=== PATIENT | male | born 1935 | race Caucasian/White ===

== ENCOUNTER 2019-02-01 15:42 | Emergency (ER) | payer MEDICARE, BC ==
[~2019-02-01] VITALS: Ht 170.2 cm; Wt 77.1 kg
[~2019-02-01 15:42] MED LIST: INSU100V28 SQ; NORCO PO; WARF-58 PO
--- NOTE | 2019-02-01 15:56 | NUR ---
Unable to reconcile pt's home medications. No information on current meds available, pt unable to provide info.
--- NOTE | 2019-02-01 16:03 | NUR ---
Patient is refusing chest x-ray, notified.
--- NOTE | 2019-02-01 16:03 | NUR ---
Patient is Aox4 & claims that [birth year] birthday is [birth year]. ER registration staff Jadon notified.
[2019-02-01 16:04] LABS: BASOPHILS # (AUTO) 0.1 K/uL (0.0-8.0); BASOPHILS % (AUTO) 0.8 % (0.0-2.0); EOSINOPHILS # (AUTO) 0.1 K/uL (0.0-0.7); HEMATOCRIT 34.6 % (36.7-47.1); HEMOGLOBIN 11.6 g/dL (12.5-16.3); LYMPHOCYTES # (AUTO) 1.1 K/uL (20.0-40.0); LYMPHOCYTES % (AUTO) 17.9 % (20.5-51.5); MEAN CORPUSCULAR HEMOGLOBIN 32.5 uug (23.8-33.4); MEAN CORPUSCULAR HGB CONC 34 g/dL (32.5-36.3); MEAN CORPUSCULAR VOLUME 96.4 fL (73.0-96.2); MONOCYTES # (AUTO) 0.5 K/uL (2.0-10.0); MONOCYTES % (AUTO) 8.8 % (0.0-11.0); NEUTROPHILS # (AUTO) 4.3 K/uL (1.8-8.9); NEUTROPHILS % (AUTO) 70.5 % (38.5-71.5); PLATELET COUNT (AUTO) 195 K/uL (152-348); RED BLOOD CELL COUNT(AUTO) 3.58 MIL/uL (4.06-5.63); WHITE BLOOD COUNT (AUTO) 6.1 K/uL (3.6-10.2)
--- NOTE | 2019-02-01 16:06 | NUR ---
Patient consents to x-ray now.
--- NOTE | 2019-02-01 16:08 | NUR ---
Patient voided by urinal.
--- NOTE | 2019-02-01 16:12 | NUR ---
Patient is refusing CT scan, notified
[2019-02-01 16:14] LABS: CARBON DIOXIDE 26 mmol/L (21-32); CHLORIDE 101 mmol/L (98-107); CREATININE 1.6 mg/dL (0.6-1.3); POTASSIUM 5.5 mmol/L (3.5-5.1); UREA NITROGEN, BLOOD 62 mg/dL (7-18)
[2019-02-01 16:16] LABS: GLUCOSE 351 mg/dL (74-106)
--- NOTE | 2019-02-01 16:16 | NUR ---
Patient is now consenting to CT scan.
[2019-02-01 16:21] LABS: ACETAMINOPHEN < 2.0 ug/mL (10-30); ALANINE AMINOTRANSFERASE 22 U/L (16-63); ALKALINE PHOSPHATASE 74 U/L (50-136); ASPARTATE AMINOTRANSFERASE 13 U/L (15-37); BILIRUBIN,DIRECT 0.1 mg/dL (0.0-0.2); BILIRUBIN,TOTAL 0.3 mg/dL (0.2-1.0); TOTAL PROTEIN, SERUM 7.6 g/dL (6.4-8.2)
--- NOTE | 2019-02-01 16:22 | NUR ---
Patiwent is back from CT scan, pt refused CT scan, MD prabhakarfied
[2019-02-01 16:23] LABS: ETHANOL < 3 MG/DL (0-0)
[2019-02-01] MEDS ORDERED: CALCIUM CHLORIDE 1 GM/10 ML DISP.SYRIN IVP ONE ×2 (16:26→16:30)
[2019-02-01] MEDS ORDERED: INSULIN REGULAR, HUMAN 300 UNIT/3 ML VIAL ONE (16:27)
[2019-02-01] MEDS ORDERED: SODIUM BICARBONATE 8.4% 50 MEQ/50 ML DISP.SYRIN IV ONE ×2 (16:27→16:30)
[2019-02-01 16:30] LABS: *BILIRUBIN,URIN NEGATIVE (NEGATIVE); *BLOOD, URINE 1+ (NEGATIVE); *CLARITY,URINE CLEAR (CLEAR); *COLOR,URINE YELLOW (YELLOW); *KETONES,URINE NEGATIVE (NEGATIVE); *UROBILINOGEN,URINE 0.2 E.U./dl (NORMAL); LEUKOCYTE ESTERASE ,URINE NEGATIVE (NEGATIVE); NITRITE, URINE NEGATIVE (NEGATIVE); UGLUCOSE 2+ (NEGATIVE)
[2019-02-01] MEDS: INSULIN REGULAR, HUMAN 300 UNIT/3 ML VIAL SQ ONE ×2 (16:30→16:35)
[2019-02-01] MEDS ORDERED: IV NORMAL SALINE 500 ML BAG IV ONE (16:30)
[2019-02-01 16:31] LABS: THYROID STIMULATING HORMONE 0.653 mIU/mL (0.358-3.740)
[2019-02-01 16:37] LABS: MUCUS,URINE FEW /LPF (0-FEW); WBC,URINE NONE SEEN /HPF (0-3)
--- NOTE | 2019-02-01 16:39 | NUR ---
Patient ambulated using the hospital-walker from ER room 3 to hallway. Patient says he uses walker at home. "Road test" done.
[2019-02-01 16:40] LABS: *AMPHETAMINE, URINE NEGATIVE (NEGATIVE); *BARBITURATE, URINE NEGATIVE (NEGATIVE); *CANNABINOID, URINE NEGATIVE (NEGATIVE); *COCCAINE, URINE NEGATIVE (NEGATIVE); *OPIATE, URINE POSITIVE (NEGATIVE); *PHENCYCLIDINE SCREEN,URINE NEGATIVE (NEGATIVE)
--- NOTE | 2019-02-01 16:42 | NUR ---
Patient passed "road test" using a walker.
--- NOTE | 2019-02-01 16:45 | NUR ---
Patient does not wish to proceed with medical care recommended by Dr. Campbell. Patient given information related to possible complications, up to and including , which could occur as a result of leaving the hospital at this time. Patient verbalizes understanding of risks involved due to leaving against medical advice. Patient has signed AMA form.
== END 2019-02-01 16:58 | disposition left against medical advice (07) ==
LOC: MERGE 15:45 → ER 15:45
DX: E87.5 Hyperkalemia (principal); E11.65 Type 2 diabetes mellitus with hyperglycemia; N28.9 Disorder of kidney and ureter, unspecified; Z88.6 Allergy status to analgesic agent; Z79.4 Long term (current) use of insulin; Z79.01 Long term (current) use of anticoagulants; Z79.891 Long term (current) use of opiate analgesic
CPT/HCPCS: 36415; 71045; 80048; 80076; 80307; 81000; 81001; 82140; 84443; 84484; 85025; 93005; 99284; G0480 ×2; G0481; J1815; J3490 ×2; 70030-TC; A4663; J7030; J7040

== ENCOUNTER 2019-12-25 15:40 | Inpatient (IN) | payer MEDICARE, BC ==
[~2019-12-25] VITALS: Ht 152.4 cm; Wt 66.2 kg
[2019-12-25 16:09] LABS: BASOPHILS # (AUTO) 0.1 K/uL (0.0-8.0); EOSINOPHILS # (AUTO) 0.1 K/uL (0.0-0.7); MEAN CORPUSCULAR VOLUME 94.1 fL (73.0-96.2)
[2019-12-25 16:24] LABS: EOSINOPHILS % (AUTO) 1.7 % (0.0-7.0); HEMATOCRIT 34.9 % (36.7-47.1); HEMOGLOBIN 11.7 g/dL (12.5-16.3); LYMPHOCYTES # (AUTO) 2.2 K/uL (20.0-40.0); LYMPHOCYTES % (AUTO) 27.5 % (20.5-51.5); MEAN CORPUSCULAR HEMOGLOBIN 31.7 uug (23.8-33.4); MEAN CORPUSCULAR HGB CONC 34 g/dL (32.5-36.3); MONOCYTES # (AUTO) 0.7 K/uL (2.0-10.0); MONOCYTES % (AUTO) 8.9 % (0.0-11.0); NEUTROPHILS # (AUTO) 4.8 K/uL (1.8-8.9); NEUTROPHILS % (AUTO) 60.9 % (38.5-71.5); RED BLOOD CELL COUNT(AUTO) 3.71 MIL/uL (4.06-5.63); WHITE BLOOD COUNT (AUTO) 7.9 K/uL (3.6-10.2)
[2019-12-25 16:34] LABS: CARBON DIOXIDE 20 mmol/L (21-32); CHLORIDE 101 mmol/L (98-107); CREATININE 2.7 mg/dL (0.6-1.3); GLUCOSE 187 mg/dL (74-106); UREA NITROGEN, BLOOD 71 mg/dL (7-18)
[2019-12-25 16:35] LABS: ETHANOL < 3 MG/DL (0-0)
[2019-12-25 16:40] LABS: ACETAMINOPHEN < 2.0 ug/mL (10-30); ALANINE AMINOTRANSFERASE 27 U/L (16-63); ALKALINE PHOSPHATASE 68 U/L (50-136); ASPARTATE AMINOTRANSFERASE 16 U/L (15-37); BILIRUBIN,DIRECT 0.1 mg/dL (0.0-0.2); BILIRUBIN,TOTAL 0.3 mg/dL (0.2-1.0); TOTAL PROTEIN, SERUM 8.2 g/dL (6.4-8.2)
[2019-12-25 16:50] LABS: PLATELET COUNT (AUTO) 193 K/uL (152-348)
[2019-12-25] MEDS ORDERED: IV NORMAL SALINE 500 ML BAG IV ONE ×2 (17:00→18:15)
[2019-12-25] MEDS ORDERED: HYDROCODONE/APAP 5-325MG TABLET PO ONE (17:45)
[2019-12-25] MEDS ORDERED: HYDROCODONE/APAP 5-325MG TABLET ONE (17:50)
[2019-12-25] MEDS ORDERED: OLANZAPINE 10 MG VIAL IM ONE ×2 (18:45→18:49)
[2019-12-25] MEDS ORDERED: HYDR-4354 PO (19:46)
[2019-12-25 20:29] LABS: *BILIRUBIN,URIN NEGATIVE (NEGATIVE); *CLARITY,URINE CLEAR (CLEAR); *COLOR,URINE YELLOW (YELLOW); *KETONES,URINE NEGATIVE (NEGATIVE); *UROBILINOGEN,URINE 0.2 E.U./dl (NORMAL); LEUKOCYTE ESTERASE ,URINE NEGATIVE (NEGATIVE); NITRITE, URINE NEGATIVE (NEGATIVE); UGLUCOSE NEGATIVE (NEGATIVE)
[2019-12-25 20:33] LABS: *BLOOD, URINE TRACE LYSED (NEGATIVE)
[2019-12-25 20:53] LABS: *AMPHETAMINE, URINE POSITIVE (NEGATIVE); *CANNABINOID, URINE NEGATIVE (NEGATIVE); *COCCAINE, URINE NEGATIVE (NEGATIVE); *OPIATE, URINE POSITIVE (NEGATIVE); *PHENCYCLIDINE SCREEN,URINE NEGATIVE (NEGATIVE)
[2019-12-25 21:19] LABS: BACTERIA,URINE FEW /HPF (NONE SEEN); RBC,URINE 0-3 /HPF (0-3); SQUAMOUS EPITHELIAL CELL,UR FEW /HPF (NONE SEEN); WBC,URINE 0-3 /HPF (0-3)
[2019-12-25 21:20] LABS: COARSE GRANULAR CASTS,URINE FEW /LPF
[2019-12-25] MEDS ORDERED: BLOOD SUGAR DIAGNOSTIC 1 EACH STRIP VI ONE (22:15)
[2019-12-25] MEDS ORDERED: MAG HYDROX/AL HYDROX/SIMETH 30 ML LIQUID UDC PO PRN (22:15)
[2019-12-25] MEDS ORDERED: MAGNESIUM HYDROXIDE 30 ML LIQUID UDC PO PRN (22:15)
[2019-12-26 07:30] VITALS: BP 150/78
[2019-12-26] MEDS ORDERED: DEXTROSE 50% 50 ML DISP.SYRIN IV PRN (07:30)
[2019-12-26] MEDS ORDERED: hydrALAZINE HCL 25 MG TABLET PO PRN (07:30)
[2019-12-26] MEDS: BLOOD SUGAR DIAGNOSTIC 1 EACH STRIP VI SCH ×4 (08:23→20:21)
[2019-12-26] MEDS: AMLODIPINE 5 MG TABLET PO SCH ×2 (08:24→20:32)
[2019-12-26 08:39] LABS: ALANINE AMINOTRANSFERASE 21 U/L (16-63); ALKALINE PHOSPHATASE 64 U/L (50-136); ASPARTATE AMINOTRANSFERASE 21 U/L (15-37); BILIRUBIN,TOTAL 0.3 mg/dL (0.2-1.0); CARBON DIOXIDE 21 mmol/L (21-32); CHLORIDE 109 mmol/L (98-107); GLUCOSE 80 mg/dL (74-106); POTASSIUM 4.4 mmol/L (3.5-5.1); TOTAL PROTEIN, SERUM 7.1 g/dL (6.4-8.2); UREA NITROGEN, BLOOD 58 mg/dL (7-18)
[2019-12-26 08:40] LABS: THYROID STIMULATING HORMONE 0.949 mIU/mL (0.358-3.740)
[2019-12-26] MEDS: HYDROCODONE/APAP 10-325 MG TABLET PO PRN (11:19)
[2019-12-26] MEDS: INSULIN REGULAR, HUMAN 300 UNIT/3 ML VIAL SQ PRN ×2 (11:27→20:23)
[2019-12-26 16:00] VITALS: BP 122/45
[2019-12-26] MEDS ORDERED: INFLUENZA VACCINE 2020-2021 0.5 ML DISP.SYRIN IM ONE (17:30)
[2019-12-26] MEDS ORDERED: PNEUMOCOCCAL 23-VAL P-SAC VAC 0.5 ML VIAL IM ONE (17:30)
[2019-12-26] MEDS: ACETAMINOPHEN 325 MG TABLET PO PRN (18:21)
[2019-12-26 20:00] VITALS: BP 159/54
[2019-12-26] MEDS: INSULIN GLARGINE,HUM 300 UNITS/3 ML CARTRIDGE SQ SCH (20:24)
[2019-12-26] MEDS: RIVASTIGMINE TARTRATE 1.5 MG CAPSULE PO SCH (20:32)
[2019-12-26] MEDS ORDERED: risperiDONE 0.5 MG TABLET PO SCH (21:00)
[2019-12-27] MEDS: BLOOD SUGAR DIAGNOSTIC 1 EACH STRIP VI SCH ×4 (07:09→20:05)
[2019-12-27 07:30] VITALS: BP 150/52
[2019-12-27] MEDS: RIVASTIGMINE TARTRATE 1.5 MG CAPSULE PO SCH ×2 (08:07→20:12)
[2019-12-27] MEDS: AMLODIPINE 5 MG TABLET PO SCH ×2 (08:10→20:09)
[2019-12-27] MEDS: LORAZEPAM 0.5 MG TABLET PO PRN ×2 (11:04→17:27)
[2019-12-27] MEDS: risperiDONE 0.5 MG TABLET PO SCH ×2 (13:58→21:13)
[2019-12-27 16:00] VITALS: BP 140/83
[2019-12-27] MEDS: INSULIN REGULAR, HUMAN 300 UNIT/3 ML VIAL SQ PRN ×2 (16:24→20:15)
[2019-12-27 20:00] VITALS: BP 119/46
[2019-12-27 20:10] VITALS: BP 120/60
[2019-12-27] MEDS: INSULIN GLARGINE,HUM 300 UNITS/3 ML CARTRIDGE SQ SCH (20:14)
[2019-12-28] MEDS: LORAZEPAM 0.5 MG TABLET PO PRN (03:32)
[2019-12-28] MEDS: BLOOD SUGAR DIAGNOSTIC 1 EACH STRIP VI SCH ×4 (06:47→20:19)
[2019-12-28 07:30] VITALS: BP 140/45
[2019-12-28] MEDS: RIVASTIGMINE TARTRATE 1.5 MG CAPSULE PO SCH ×2 (09:46→20:03)
[2019-12-28] MEDS: risperiDONE 0.5 MG TABLET PO SCH ×2 (09:46→20:03)
[2019-12-28] MEDS: AMLODIPINE 5 MG TABLET PO SCH ×2 (09:49→20:06)
[2019-12-28 15:06] VITALS: BP 125/50
[2019-12-28 19:57] VITALS: BP 108/54
[2019-12-28] MEDS: INSULIN REGULAR, HUMAN 300 UNIT/3 ML VIAL SQ PRN (20:22)
[2019-12-28] MEDS: INSULIN GLARGINE,HUM 300 UNITS/3 ML CARTRIDGE SQ SCH (20:25)
[2019-12-29] MEDS: BLOOD SUGAR DIAGNOSTIC 1 EACH STRIP VI SCH ×4 (06:57→20:34)
[2019-12-29 07:30] VITALS: BP 106/67
[2019-12-29] MEDS: risperiDONE 0.5 MG TABLET PO SCH ×2 (08:26→20:09)
[2019-12-29] MEDS: RIVASTIGMINE TARTRATE 1.5 MG CAPSULE PO SCH ×2 (08:26→20:09)
[2019-12-29] MEDS: AMLODIPINE 5 MG TABLET PO SCH ×2 (08:27→20:10)
[2019-12-29] MEDS: ACETAMINOPHEN 325 MG TABLET PO PRN (08:31)
[2019-12-29] MEDS: INSULIN REGULAR, HUMAN 300 UNIT/3 ML VIAL SQ PRN ×3 (12:23→20:46)
[2019-12-29 15:40] VITALS: BP 141/52
[2019-12-29] MEDS: HYDROCODONE/APAP 10-325 MG TABLET PO PRN (18:22)
[2019-12-29 20:00] VITALS: BP 135/61
[2019-12-29] MEDS: LORAZEPAM 0.5 MG TABLET PO PRN (20:11)
[2019-12-29] MEDS: INSULIN GLARGINE,HUM 300 UNITS/3 ML CARTRIDGE SQ SCH (20:45)
[2019-12-29] MEDS: TEMAZEPAM 7.5 MG CAPSULE PO PRN (23:23)
[2019-12-30] MEDS: BLOOD SUGAR DIAGNOSTIC 1 EACH STRIP VI SCH ×4 (06:34→20:19)
[2019-12-30 06:51] LABS: CARBON DIOXIDE 23 mmol/L (21-32); CHLORIDE 107 mmol/L (98-107); CREATININE 1.9 mg/dL (0.6-1.3); GLUCOSE 182 mg/dL (74-106); POTASSIUM 4.9 mmol/L (3.5-5.1); UREA NITROGEN, BLOOD 61 mg/dL (7-18)
[2019-12-30 07:22] LABS: BASOPHILS % (AUTO) 0.4 % (0.0-2.0); EOSINOPHILS # (AUTO) 0.2 K/uL (0.0-0.7); EOSINOPHILS % (AUTO) 1.7 % (0.0-7.0); HEMATOCRIT 35.9 % (36.7-47.1); HEMOGLOBIN 12.1 g/dL (12.5-16.3); LYMPHOCYTES # (AUTO) 1.5 K/uL (20.0-40.0); MEAN CORPUSCULAR HEMOGLOBIN 31.6 uug (23.8-33.4); MEAN CORPUSCULAR HGB CONC 34 g/dL (32.5-36.3); MONOCYTES # (AUTO) 0.7 K/uL (2.0-10.0); MONOCYTES % (AUTO) 7.8 % (0.0-11.0); NEUTROPHILS # (AUTO) 7.1 K/uL (1.8-8.9); NEUTROPHILS % (AUTO) 74.1 % (38.5-71.5); PLATELET COUNT (AUTO) 198 K/uL (152-348); RED BLOOD CELL COUNT(AUTO) 3.82 MIL/uL (4.06-5.63); WHITE BLOOD COUNT (AUTO) 9.6 K/uL (3.6-10.2)
[2019-12-30 07:30] VITALS: BP 121/67
[2019-12-30] MEDS: INSULIN REGULAR, HUMAN 300 UNIT/3 ML VIAL SQ PRN ×4 (08:12→20:21)
[2019-12-30] MEDS: RIVASTIGMINE TARTRATE 1.5 MG CAPSULE PO SCH ×2 (08:16→20:23)
[2019-12-30] MEDS: AMLODIPINE 5 MG TABLET PO SCH ×2 (08:16→20:24)
[2019-12-30] MEDS: risperiDONE 0.5 MG TABLET PO SCH ×2 (08:17→20:23)
[2019-12-30 16:00] VITALS: BP 122/50
[2019-12-30 20:00] VITALS: BP 164/54
[2019-12-30] MEDS: INSULIN GLARGINE,HUM 300 UNITS/3 ML CARTRIDGE SQ SCH (20:41)
[2019-12-30] MEDS: LORAZEPAM 0.5 MG TABLET PO PRN (21:38)
[2019-12-31] MEDS: TEMAZEPAM 7.5 MG CAPSULE PO PRN (00:05)
[2019-12-31 07:30] VITALS: BP 139/58
[2019-12-31] MEDS: BLOOD SUGAR DIAGNOSTIC 1 EACH STRIP VI SCH ×4 (08:14→20:06)
[2019-12-31] MEDS: risperiDONE 0.5 MG TABLET PO SCH (08:28)
[2019-12-31] MEDS: RIVASTIGMINE TARTRATE 1.5 MG CAPSULE PO SCH ×2 (08:29→20:04)
[2019-12-31] MEDS: AMLODIPINE 5 MG TABLET PO SCH ×2 (08:29→20:03)
[2019-12-31] MEDS: LORAZEPAM 0.5 MG TABLET PO PRN ×2 (10:35→19:22)
[2019-12-31] MEDS: INSULIN REGULAR, HUMAN 300 UNIT/3 ML VIAL SQ PRN ×3 (11:55→20:02)
[2019-12-31 15:07] VITALS: BP 107/62
[2019-12-31] MEDS: INSULIN GLARGINE,HUM 300 UNITS/3 ML CARTRIDGE SQ SCH (20:01)
[2019-12-31] MEDS: risperiDONE 1 MG TABLET PO SCH (20:04)
[2019-12-31 21:06] VITALS: BP 147/60
[2020-01-01] MEDS: BLOOD SUGAR DIAGNOSTIC 1 EACH STRIP VI SCH ×4 (06:30→20:04)
[2020-01-01 07:30] VITALS: BP 127/64
[2020-01-01] MEDS: risperiDONE 1 MG TABLET PO SCH ×2 (08:38→20:17)
[2020-01-01] MEDS: RIVASTIGMINE TARTRATE 1.5 MG CAPSULE PO SCH ×3 (08:38→22:12)
[2020-01-01] MEDS: AMLODIPINE 5 MG TABLET PO SCH ×2 (08:39→20:17)
[2020-01-01] MEDS: LORAZEPAM 0.5 MG TABLET PO PRN ×2 (08:48→18:11)
[2020-01-01 16:00] VITALS: BP 116/56
[2020-01-01] MEDS: INSULIN REGULAR, HUMAN 300 UNIT/3 ML VIAL SQ PRN ×2 (16:26→20:10)
[2020-01-01 20:09] VITALS: BP 113/54
[2020-01-01] MEDS: INSULIN GLARGINE,HUM 300 UNITS/3 ML CARTRIDGE SQ SCH (20:09)
[2020-01-01] MEDS: TEMAZEPAM 7.5 MG CAPSULE PO PRN (22:12)
[2020-01-02] MEDS: BLOOD SUGAR DIAGNOSTIC 1 EACH STRIP VI SCH ×4 (06:32→20:24)
[2020-01-02 07:30] VITALS: BP 149/104
[2020-01-02] MEDS: INSULIN REGULAR, HUMAN 300 UNIT/3 ML VIAL SQ PRN ×4 (07:46→20:33)
[2020-01-02] MEDS: RIVASTIGMINE TARTRATE 1.5 MG CAPSULE PO SCH ×2 (08:11→20:02)
[2020-01-02] MEDS: risperiDONE 1 MG TABLET PO SCH ×2 (08:12→20:03)
[2020-01-02] MEDS: AMLODIPINE 5 MG TABLET PO SCH ×2 (08:13→20:19)
[2020-01-02] MEDS: LORAZEPAM 0.5 MG TABLET PO PRN (14:31)
[2020-01-02 16:00] VITALS: BP 110/60
[2020-01-02] MEDS ORDERED: Z GUARD REMEDY PASTE 57 GM TUBE TOP PRN (19:45)
[2020-01-02 20:21] VITALS: BP 136/62
[2020-01-02] MEDS: INSULIN GLARGINE,HUM 300 UNITS/3 ML CARTRIDGE SQ SCH (20:29)
[2020-01-02 22:00] VITALS: BP 132/82
[2020-01-03 04:00] VITALS: BP 138/69
[2020-01-03] MEDS: BLOOD SUGAR DIAGNOSTIC 1 EACH STRIP VI SCH ×4 (06:31→20:13)
[2020-01-03 06:45] LABS: BASOPHILS # (AUTO) 0.1 K/uL (0.0-8.0); BASOPHILS % (AUTO) 0.7 % (0.0-2.0); EOSINOPHILS # (AUTO) 0.2 K/uL (0.0-0.7); EOSINOPHILS % (AUTO) 2.5 % (0.0-7.0); HEMATOCRIT 30.7 % (36.7-47.1); HEMOGLOBIN 10.6 g/dL (12.5-16.3); LYMPHOCYTES # (AUTO) 1.5 K/uL (20.0-40.0); LYMPHOCYTES % (AUTO) 19.7 % (20.5-51.5); MEAN CORPUSCULAR HEMOGLOBIN 32.3 uug (23.8-33.4); MEAN CORPUSCULAR HGB CONC 35 g/dL (32.5-36.3); MONOCYTES # (AUTO) 0.8 K/uL (2.0-10.0); MONOCYTES % (AUTO) 9.9 % (0.0-11.0); NEUTROPHILS # (AUTO) 5.1 K/uL (1.8-8.9); NEUTROPHILS % (AUTO) 67.2 % (38.5-71.5); PLATELET COUNT (AUTO) 153 K/uL (152-348); WHITE BLOOD COUNT (AUTO) 7.6 K/uL (3.6-10.2)
[2020-01-03 06:48] LABS: CARBON DIOXIDE 25 mmol/L (21-32); CHLORIDE 108 mmol/L (98-107); CREATININE 1.6 mg/dL (0.6-1.3); GLUCOSE 205 mg/dL (74-106); POTASSIUM 4.5 mmol/L (3.5-5.1); UREA NITROGEN, BLOOD 48 mg/dL (7-18)
[2020-01-03 08:53] VITALS: BP 141/75
[2020-01-03] MEDS: risperiDONE 1 MG TABLET PO SCH ×2 (10:20→20:12)
[2020-01-03] MEDS: AMLODIPINE 5 MG TABLET PO SCH ×2 (10:21→20:12)
[2020-01-03] MEDS: RIVASTIGMINE TARTRATE 1.5 MG CAPSULE PO SCH ×2 (10:21→20:12)
[2020-01-03 15:24] VITALS: BP 135/66
[2020-01-03 16:00] VITALS: BP 146/66
[2020-01-03] MEDS: INSULIN REGULAR, HUMAN 300 UNIT/3 ML VIAL SQ PRN ×2 (17:22→20:18)
[2020-01-03 20:00] VITALS: BP 138/75
[2020-01-03] MEDS: INSULIN GLARGINE,HUM 300 UNITS/3 ML CARTRIDGE SQ SCH (20:17)
[2020-01-03] MEDS: LORAZEPAM 0.5 MG TABLET PO PRN (22:04)
[2020-01-04] MEDS: BLOOD SUGAR DIAGNOSTIC 1 EACH STRIP VI SCH ×4 (06:36→20:46)
[2020-01-04 07:30] VITALS: BP 123/59
[2020-01-04] MEDS: INSULIN REGULAR, HUMAN 300 UNIT/3 ML VIAL SQ PRN ×3 (08:42→20:49)
[2020-01-04] MEDS: RIVASTIGMINE TARTRATE 1.5 MG CAPSULE PO SCH ×2 (09:49→20:12)
[2020-01-04] MEDS: AMLODIPINE 5 MG TABLET PO SCH ×2 (09:49→20:17)
[2020-01-04] MEDS: risperiDONE 1 MG TABLET PO SCH ×2 (09:51→20:12)
[2020-01-04 16:00] VITALS: BP 94/54
[2020-01-04 20:35] VITALS: BP 107/62
[2020-01-04] MEDS: INSULIN GLARGINE,HUM 300 UNITS/3 ML CARTRIDGE SQ SCH (20:50)
[2020-01-04] MEDS: TEMAZEPAM 7.5 MG CAPSULE PO PRN (21:44)
[2020-01-05] MEDS: LORAZEPAM 0.5 MG TABLET PO PRN ×2 (01:52→10:39)
[2020-01-05] MEDS: BLOOD SUGAR DIAGNOSTIC 1 EACH STRIP VI SCH ×4 (06:53→20:29)
[2020-01-05 07:30] VITALS: BP 121/63
[2020-01-05] MEDS: INSULIN REGULAR, HUMAN 300 UNIT/3 ML VIAL SQ PRN ×3 (08:29→16:34)
[2020-01-05] MEDS: RIVASTIGMINE TARTRATE 1.5 MG CAPSULE PO SCH ×2 (08:42→20:06)
[2020-01-05] MEDS: risperiDONE 1 MG TABLET PO SCH ×2 (08:43→20:06)
[2020-01-05] MEDS: AMLODIPINE 5 MG TABLET PO SCH ×2 (08:43→20:06)
[2020-01-05 16:38] VITALS: BP 129/62
[2020-01-05 20:08] VITALS: BP 125/61
[2020-01-05] MEDS: INSULIN GLARGINE,HUM 300 UNITS/3 ML CARTRIDGE SQ SCH (20:34)
[2020-01-06] MEDS: BLOOD SUGAR DIAGNOSTIC 1 EACH STRIP VI SCH ×5 (06:44→20:16)
[2020-01-06] MEDS: LORAZEPAM 0.5 MG TABLET PO PRN ×2 (07:41→13:16)
[2020-01-06 07:54] VITALS: BP 109/55
[2020-01-06] MEDS: RIVASTIGMINE TARTRATE 1.5 MG CAPSULE PO SCH ×2 (08:19→20:13)
[2020-01-06] MEDS: HALOPERIDOL 1 MG TABLET PO SCH ×3 (08:19→16:37)
[2020-01-06] MEDS: AMLODIPINE 5 MG TABLET PO SCH ×2 (08:19→20:13)
[2020-01-06] MEDS: INSULIN REGULAR, HUMAN 300 UNIT/3 ML VIAL SQ PRN ×4 (08:20→20:19)
[2020-01-06 16:32] VITALS: BP 95/63
[2020-01-06] MEDS: INSULIN GLARGINE,HUM 300 UNITS/3 ML CARTRIDGE SQ SCH (20:15)
[2020-01-06 20:25] VITALS: BP 104/59
[2020-01-06] MEDS: TEMAZEPAM 7.5 MG CAPSULE PO PRN (21:50)
[2020-01-07] MEDS: BLOOD SUGAR DIAGNOSTIC 1 EACH STRIP VI SCH ×4 (06:38→20:44)
[2020-01-07 07:30] VITALS: BP 99/52
[2020-01-07] MEDS: LORAZEPAM 0.5 MG TABLET PO PRN ×2 (08:02→16:04)
[2020-01-07] MEDS: RIVASTIGMINE TARTRATE 1.5 MG CAPSULE PO SCH ×2 (08:17→20:42)
[2020-01-07] MEDS: HALOPERIDOL 1 MG TABLET PO SCH ×3 (08:17→16:04)
[2020-01-07] MEDS: AMLODIPINE 5 MG TABLET PO SCH ×2 (08:18→20:43)
[2020-01-07] MEDS: INSULIN REGULAR, HUMAN 300 UNIT/3 ML VIAL SQ PRN ×3 (11:42→20:47)
[2020-01-07 16:00] VITALS: BP 99/60
[2020-01-07] MEDS: HYDROCODONE/APAP 10-325 MG TABLET PO PRN (16:47)
[2020-01-07 20:28] VITALS: BP 120/72
[2020-01-07] MEDS: INSULIN GLARGINE,HUM 300 UNITS/3 ML CARTRIDGE SQ SCH (20:50)
[2020-01-08] MEDS: LORAZEPAM 0.5 MG TABLET PO PRN ×2 (04:14→16:37)
[2020-01-08] MEDS: BLOOD SUGAR DIAGNOSTIC 1 EACH STRIP VI SCH ×4 (06:55→20:28)
[2020-01-08 07:30] VITALS: BP 104/68
[2020-01-08] MEDS: HALOPERIDOL 1 MG TABLET PO SCH ×4 (08:46→20:26)
[2020-01-08] MEDS: RIVASTIGMINE TARTRATE 1.5 MG CAPSULE PO SCH ×2 (08:46→20:25)
[2020-01-08] MEDS: AMLODIPINE 5 MG TABLET PO SCH ×2 (08:47→20:32)
[2020-01-08] MEDS: INSULIN REGULAR, HUMAN 300 UNIT/3 ML VIAL SQ PRN ×3 (12:14→20:30)
[2020-01-08 16:42] VITALS: BP 106/49
[2020-01-08 20:07] VITALS: BP 103/71
[2020-01-08] MEDS: INSULIN GLARGINE,HUM 300 UNITS/3 ML CARTRIDGE SQ SCH (20:28)
[2020-01-09] MEDS: TEMAZEPAM 7.5 MG CAPSULE PO PRN (01:20)
[2020-01-09] MEDS: BLOOD SUGAR DIAGNOSTIC 1 EACH STRIP VI SCH ×4 (06:31→20:06)
[2020-01-09 07:30] VITALS: BP 108/62
[2020-01-09] MEDS: AMLODIPINE 5 MG TABLET PO SCH ×2 (08:04→20:27)
[2020-01-09] MEDS: RIVASTIGMINE TARTRATE 1.5 MG CAPSULE PO SCH ×2 (08:04→20:27)
[2020-01-09] MEDS: HALOPERIDOL 1 MG TABLET PO SCH ×4 (08:05→20:28)
[2020-01-09] MEDS: CLONAZEPAM 0.5 MG TABLET PO SCH ×3 (08:05→16:04)
[2020-01-09] MEDS: INSULIN REGULAR, HUMAN 300 UNIT/3 ML VIAL SQ PRN ×2 (11:32→16:24)
[2020-01-09 16:00] VITALS: BP 107/62
[2020-01-09 20:09] VITALS: BP 109/68
[2020-01-09] MEDS: INSULIN GLARGINE,HUM 300 UNITS/3 ML CARTRIDGE SQ SCH (20:26)
[2020-01-09] MEDS: HYDROCODONE/APAP 10-325 MG TABLET PO PRN (21:35)
[2020-01-10 07:30] VITALS: BP 91/52
[2020-01-10] MEDS: BLOOD SUGAR DIAGNOSTIC 1 EACH STRIP VI SCH ×2 (07:44→11:27)
[2020-01-10 07:55] LABS: BASOPHILS # (AUTO) 0.1 K/uL (0.0-8.0); BASOPHILS % (AUTO) 0.7 % (0.0-2.0); EOSINOPHILS # (AUTO) 0.1 K/uL (0.0-0.7); EOSINOPHILS % (AUTO) 1.7 % (0.0-7.0); HEMATOCRIT 31.8 % (36.7-47.1); HEMOGLOBIN 10.9 g/dL (12.5-16.3); LYMPHOCYTES # (AUTO) 1.5 K/uL (20.0-40.0); LYMPHOCYTES % (AUTO) 19.2 % (20.5-51.5); MEAN CORPUSCULAR HEMOGLOBIN 31.9 uug (23.8-33.4); MEAN CORPUSCULAR HGB CONC 34 g/dL (32.5-36.3); MEAN CORPUSCULAR VOLUME 93.3 fL (73.0-96.2); MONOCYTES # (AUTO) 0.7 K/uL (2.0-10.0); MONOCYTES % (AUTO) 9.1 % (0.0-11.0); NEUTROPHILS # (AUTO) 5.6 K/uL (1.8-8.9); NEUTROPHILS % (AUTO) 69.3 % (38.5-71.5); PLATELET COUNT (AUTO) 226 K/uL (152-348); RED BLOOD CELL COUNT(AUTO) 3.41 MIL/uL (4.06-5.63)
[2020-01-10] MEDS: CLONAZEPAM 0.5 MG TABLET PO SCH ×3 (08:01→16:00)
[2020-01-10] MEDS: RIVASTIGMINE TARTRATE 1.5 MG CAPSULE PO SCH (08:01)
[2020-01-10] MEDS: HALOPERIDOL 1 MG TABLET PO SCH ×3 (08:01→16:00)
[2020-01-10 08:14] LABS: CARBON DIOXIDE 26 mmol/L (21-32); CHLORIDE 103 mmol/L (98-107); GLUCOSE 174 mg/dL (74-106); MAGNESIUM 2.2 mg/dL (1.8-2.4); PHOSPHOROUS 3.4 mg/dL (2.5-4.9); POTASSIUM 4.2 mmol/L (3.5-5.1); UREA NITROGEN, BLOOD 48 mg/dL (7-18)
[2020-01-10 08:22] LABS: CREATININE 1.4 mg/dL (0.6-1.3)
[2020-01-10] MEDS: AMLODIPINE 5 MG TABLET PO SCH (09:00)
[2020-01-10] MEDS: INSULIN REGULAR, HUMAN 300 UNIT/3 ML VIAL SQ PRN (11:30)
[2020-01-10 16:19] VITALS: BP 125/80
[2020-01-10] MEDS ORDERED: ACET-2154 PO (17:36)
[2020-01-10] MEDS ORDERED: CLON0.5T PO (17:37)
[2020-01-10] MEDS ORDERED: AMLO5TAB4 PO (17:37)
[2020-01-10] MEDS ORDERED: HALO5TAB PO (17:38)
[2020-01-10] MEDS ORDERED: HALO1TAB PO (17:40)
[2020-01-10] MEDS ORDERED: INSU100V7 SQ (17:40)
[2020-01-10] MEDS ORDERED: LORA-258 PO (17:42)
[2020-01-10] MEDS ORDERED: RIVA1.5C13 PO (17:44)
[2020-01-10] MEDS ORDERED: TEMA7.5C PO (17:45)
[2020-01-10] MEDS ORDERED: [UNRECOGNIZED DRUG - CODE] VI (17:49)
[2020-01-10] MEDS ORDERED: INSU100V28 (17:49)
== END 2020-01-10 16:27 | disposition short-term general hospital (02) | DRG 885 ==
LOC: ER 15:40 → GPS 21:35 → MEDSURG3 01-02 21:39 → GPSOV3 01-02 21:54 → GPS 01-03 15:34
PROVIDERS: ADMIT Psychiatry & Neurology Psychiatry; ATTEND Registered Nurse
DX: F29 Unspecified psychosis not due to a substance or known physiological condition (principal); N17.9 Acute kidney failure, unspecified; N18.9 Chronic kidney disease, unspecified; E11.65 Type 2 diabetes mellitus with hyperglycemia; E87.1 Hypo-osmolality and hyponatremia; G93.40 Encephalopathy, unspecified; F23 Brief psychotic disorder; Z86.718 Personal history of other venous thrombosis and embolism; Z79.01 Long term (current) use of anticoagulants; G89.29 Other chronic pain; F03.90 Unspecified dementia, unspecified severity, without behavioral disturbance, psychotic disturbance, mood disturbance, and anxiety; E11.21 Type 2 diabetes mellitus with diabetic nephropathy; Z79.4 Long term (current) use of insulin; E11.22 Type 2 diabetes mellitus with diabetic chronic kidney disease; I12.9 Hypertensive chronic kidney disease with stage 1 through stage 4 chronic kidney disease, or unspecified chronic kidney disease; D53.9 Nutritional anemia, unspecified; E87.5 Hyperkalemia; M19.90 Unspecified osteoarthritis, unspecified site; Z73.6 Limitation of activities due to disability; R00.1 Bradycardia, unspecified; I35.0 Nonrheumatic aortic (valve) stenosis; M54.30 Sciatica, unspecified side; E11.319 Type 2 diabetes mellitus with unspecified diabetic retinopathy without macular edema
CPT/HCPCS: 36415; 70030-TC; 70450; 71045; 76770; 83735; 84100; 84443; 85025; 90686; 90732; 93005; 93307; A4663; G0480; J1815; J2358; J7040